=== PATIENT | female | born 1985 | race Caucasian/White ===

== ENCOUNTER → 2019-08-17 14:34 | Outpatient (CLI) | payer OTHER, SELFPAY ==
[2015-07-24 17:01] VITALS: BMI 24.2
== END ==
PROVIDERS: Family Provider Family Medicine; PCP Family Medicine; Referring Provider Family Medicine; Visit Provider Family Medicine
DX: N94.6 Dysmenorrhea, unspecified (principal)
CPT/HCPCS: 36415

== ENCOUNTER → 2022-12-30 | Outpatient (CLI) | payer OTHER, SELFPAY ==
--- NOTE | 2022-12-30 15:50 | RAD_ITS ---
INDICATION: BLOATING EXAMINATION/TECHNIQUE: X-RAY - XR Abdomen Series W/ Chest 1 View: Frontal chest with upright and supine abdominal radiograph. COMPARISON: None FINDINGS: LINES/DEVICES: None. --Chest: LUNGS: No consolidation, florid edema, or effusion. No pneumothorax. MEDIASTINUM AND CARDIOVASCULAR STRUCTURES: Cardiac silhouette not enlarged. BONES AND SOFT TISSUES: No acute findings. --Abdomen: BOWEL GAS PATTERN: Non-obstructive. No fotcal stomach or bowel distention. Large colonic stool burden. FREE AIR: None visualized. ORGANOMEGALY: Not seen. CALCIFICATIONS: No concerning calcifications. BONES AND SOFT TISSUES: No acute findings. Lateral curvature of the thoracolumbar spine. Bilateral tubal ligation clips. RAD/Acute Abdomen Inc Chest IMPRESSION: No evidence of acute cardiopulmonary process. Nonobstructive bowel gas pattern. Large colonic stool burden as can be seen with constipation. Electronically Signed: Adolph Palomo MD at 18:25 EDT ,
[2022-12-30 18:18] LABS: Basophil% 0.4 % (0-1); Eosinophils% 0.8 % (0-5); Hematocrit 40.3 % (37-47); Hemoglobin 13.4 g/dL (12.0-15.0); Mean Corp Hgb Conc 33.3 g/dL (32-36); Mean Corpuscular Hgb 29.8 pg (27.0-32.0); Mean Corpuscular Volume 89.6 fL (81-99); Mean Platelet Vol. 9.9 fl (6.2-12.0); Monocyte% 5.9 % (0-10); Neutrophil % 66.7 % (47-70); Platelet Count 322 K/mm3 (150-450); RBC Distribution Width CV 11.4 % (11.6-14.6); RBC Distribution Width SD 37.1 fl (35.1-43.9); White Blood Count 9.7 K/mm3 (4.4-11.0)
[2022-12-30 18:19] LABS: Absolute Lymphocyte Count 2.53 X10^3/uL (0.83-4.51); Absolute Neutrophil Count 6.5 X10^3/uL (2.0-7.7); Basophil# 0.04 X10^3/uL; Eosinophil# 0.08 X10^3/uL; Lymphocyte # 2.53 X10^3/ul (0.83-4.51); Monocyte# 0.57 X10^3/uL; NRBC Flagged by Analyzer 0 % (0-5); Neutrophil # 6.49 X10^3/uL (2.7-7.7)
[2022-12-30 18:24] LABS: Erythrocyte Sedimentation Rate 4 mm/hr (0-30)
[2022-12-30 18:49] LABS: Color, Urine Yellow (Yellow); Glucose, Dipstick Normal (Normal); Ketone-Dipstick Negative (Negative); Leukocyte Esterase-Dipstick 25 /ul (Negative); Nitrite-Dipstick Negative (Negative); Occult Blood-Urine Negative /ul (Negative); Protein-Dipstick Negative (Negative); Specific Gravity, Urine 1.015 (1.002-1.030); Urine Bilirubin Dipstick Negative (Negative); Urine Clarity Clear (Clear); Urine Urobilinogen Normal (Normal); Urine pH 6.5 (5.0 - 8.0)
[2022-12-30 18:51] LABS: ALB/GLOB Ratio 1.2 RATIO (0.9-2.4); AST(SGOT) 15 U/L (15-37); Alanine Aminotransfer ALT/SGPT 20 U/L (13-56); Albumin, Serum 4.1 g/dL (3.2-5.0); Alkaline Phosphatase 70 U/L (45-117); Anion Gap 7 (5-15); BUN 13 mg/dL (7-18); BUN/Creat Ratio 17.1 RATIO (10-20); Chloride 103 mmol/L (98-107); Cholesterol 205 mg/dL (200); Creatinine, Serum 0.76 mg/dL (0.55-1.02); EST Glomerular Filtration Rate 92 mL/min (>60); Est Glom Filt Rate - Afr Amer 111 mL/min (>60); Globulin 3.5 g/dL (2.2-4.2); Glucose 78 mg/dL (74-106); High Density Lipoprotein 70 mg/dL; Potassium 3.8 mmol/L (3.5-5.1); Protein, Total 7.6 g/dL (6.4-8.2); Sodium Level 136 mmol/L (136-145); Thyroid Stim Hormone (TSH) 0.74 uIU/mL (0.358-3.74); Triglycerides 57 mg/dL; Very Low Density Lipoprotein 11 mg/dL (5-40)
[2023-01-04 15:08] LABS: Beef <0.10 kU/L (Class 0); Corn <0.10 kU/L (Class 0); Egg, Whole <0.10 kU/L (Class 0); Milk (Cow) <0.10 kU/L (Class 0); Peanut <0.10 kU/L (Class 0); Pork <0.10 kU/L (Class 0); Soybean <0.10 kU/L (Class 0); Wheat <0.10 kU/L (Class 0)
[2023-01-05 11:10] LABS: Chocolate <0.10 kU/L (Class 0)
== END | disposition home or self-care (01) ==
LOC: MTLAB 15:48
PROVIDERS: PCP Family Medicine; Referring Provider Family Medicine; Visit Provider Family Medicine
DX: Z00.00 Encounter for general adult medical examination without abnormal findings (principal); R14.0 Abdominal distension (gaseous)
CPT/HCPCS: 36415; 74022; 80053; 80061; 81002; 84443; 85025; 85652; 86003; 86005

== ENCOUNTER → 2025-06-18 | Outpatient (CLI) | payer SELFPAY ==
--- NOTE | 2025-06-18 12:37 | RAD_ITS ---
PROCEDURE: FOOT MIN 3 VIEWS 06/18/2025 REASON FOR EXAM: RIGHT FOOT PAIN TECHNIQUE: Procedure Code: RADFO Modality: DX Procedure: FOOT MIN 3 VIEWS Laterality: Right COMPARISON: None FINDINGS: Bones: Comminuted displaced fracture deformity of left 4th proximal phalanx Joints: Normal alignment. Joint spaces preserved. No arthropathic features. Soft tissues: Soft tissue swelling overlying left 4th proximal phalanx. Other: RAD/Foot min 3 Views IMPRESSION: Comminuted displaced fracture deformity of left 4th proximal phalanx. There is soft tissue swelling overlying fracture sites. Reading Location: [id number]
== END | disposition home or self-care (01) ==
PROVIDERS: PCP Family Medicine
DX: M79.671 Pain in right foot (principal)
CPT/HCPCS: 73630